=== PATIENT | male | born 1970 | race Two or more races ===

== ENCOUNTER 2020-10-19 12:51 | Inpatient (IN) | payer MEDICAID ==
[~2020-10-19] VITALS: Ht 157.5 cm; Wt 61.2 kg
[2020-10-19] MEDS ORDERED: SODIUM CHLORIDE 0.9% 1,000 ML IV ONE ×3 (13:15→17:19)
[2020-10-19 14:12] LABS: BASOPHILS % 0.7 % (0.0-2.0); CHLORIDE 118 mEq/L (98-107); HEMATOCRIT. 26.5 % (42.0-52.0); HEMOGLOBIN. 8.1 g/dL (14.0-18.0); LYMPHOCYTES % 38.5 % (20.0-50.0); MEAN CORPUSCULAR HEMOGLOBIN 21.4 pg (28.0-32.0); MEAN CORPUSCULAR VOLUME 69.4 fL (80.0-94.0); MEAN PLATELET VOLUME 8.5 fl (7.4-10.4); MONOCYTES % 6.9 % (2.0-8.0); NEUTROPHILS % 51.9 % (40.0-76.0); PLATELET 224 x1000/uL (130-400); RED BLOOD CELL COUNT 3.82 mill/uL (4.7-6.1); RED CELL DISTRIBUTION WIDTH 31.9 % (11.6-14.6)
[2020-10-19 14:25] LABS: ETHANOL BLOOD 336 mg/dL
[2020-10-19 15:53] LABS: PLATELET ESTIMATE NORMAL
[2020-10-19] MEDS ORDERED: ACETAMINOPHEN 500MG TABLET PO ONE (16:45)
[2020-10-19] MEDS ORDERED: LORAZEPAM 2MG/ML CPJ IV ONE (17:45)
[2020-10-19] MEDS ORDERED: DIPHENHYDRAMINE 50MG CAPSULE PO ONE (18:00)
[2020-10-19] MEDS ORDERED: ONDANSETRON HCL 4MG/2ML INJ IV PRN (22:15)
[2020-10-19] MEDS ORDERED: LORAZEPAM 2MG/ML CPJ IV PRN ×2 (22:15→22:45)
[2020-10-19] MEDS: HYDROCODONE/ACETAMINOPHEN 5/325MG TABLET PO PRN (23:06)
[2020-10-19 23:30] VITALS: BP 110/56
[2020-10-19] MEDS: CHLORDIAZEPOXIDE 25MG CAPSULE PO SCH (23:32)
[2020-10-20] VITALS: BP 106/53
[2020-10-20] MEDS ORDERED: NON FORMULARY PATIENT HOME MED XX SCH (00:15)
[2020-10-20 04:00] VITALS: BP 106/52
[2020-10-20] MEDS: HYDROCODONE/ACETAMINOPHEN 5/325MG TABLET PO PRN ×3 (04:14→13:27)
[2020-10-20 06:08] LABS: BASOPHILS % 1.2 % (0.0-2.0); EOSINOPHILS % 1.5 % (0.0-5.0); HEMATOCRIT. 25.7 % (42.0-52.0); HEMOGLOBIN. 7.7 g/dL (14.0-18.0); LYMPHOCYTES % 33.1 % (20.0-50.0); MEAN CORPUSCULAR VOLUME 70.1 fL (80.0-94.0); MEAN PLATELET VOLUME 8.8 fl (7.4-10.4); MONOCYTES % 12.8 % (2.0-8.0); NEUTROPHILS % 51.4 % (40.0-76.0); RED BLOOD CELL COUNT 3.67 mill/uL (4.7-6.1); RED CELL DISTRIBUTION WIDTH 33.3 % (11.6-14.6)
[2020-10-20 06:14] LABS: CHLORIDE 109 mEq/L (98-107)
[2020-10-20] MEDS ORDERED: DEXTROSE 50% WATER 50ML SYRINGE IV PRN (06:15)
[2020-10-20] MEDS: BLOOD SUGAR DIAGNOSTIC STRIP TEST SCH ×3 (06:20→17:10)
[2020-10-20] MEDS: CHLORDIAZEPOXIDE 25MG CAPSULE PO SCH ×2 (06:27→13:27)
[2020-10-20] MEDS: INSULIN LISPRO 100 UNITS/ML SUBCUT SCH ×3 (06:30→17:40)
[2020-10-20] MEDS ORDERED: METF-414 MT (06:54)
[2020-10-20] MEDS ORDERED: PANTOPRAZOLE 40MG DR TABLET PO SCH (07:10)
[2020-10-20 08:00] VITALS: BP 136/97
[2020-10-20] MEDS: METFORMIN HCL 500MG TABLET PO SCH ×2 (08:32→17:40)
[2020-10-20] MEDS ORDERED: THIAMINE HCL 100MG TABLET PO SCH (09:00)
[2020-10-20] MEDS ORDERED: FOLIC ACID 1MG TABLET PO SCH (09:00)
[2020-10-20] MEDS ORDERED: IRON SUCROSE COMPLEX 100 MG/5 ML ML IV SCH (09:00)
[2020-10-20] MEDS ORDERED: MULTIVITAMINS,THER W-MINERALS TABLET PO SCH (09:00)
[2020-10-20 09:21] LABS: PLATELET 210 x1000/uL (130-400)
[2020-10-20 12:00] VITALS: BP 103/51
[2020-10-20] MEDS ORDERED: INSULIN GLARGINE UD 100 UNITS/ML SYR SUBCUT SCH ×2 (13:00→22:00)
[2020-10-20] MEDS ORDERED: THIA100T88 MT (14:09)
[2020-10-20] MEDS ORDERED: METF-874 MT (14:09)
[2020-10-20] MEDS ORDERED: GLIP5TAB12 MT (14:09)
[2020-10-20] MEDS ORDERED: FERR325T23 MT (16:07)
[2020-10-20] MEDS ORDERED: DOCU-138 MT (16:07)
[2020-10-20 16:56] VITALS: BP 103/51
== END 2020-10-20 18:17 | disposition home or self-care (01) | DRG 425 ==
LOC: ER 12:51 → EDBD 19:42 → 8WST 19:42 → EDBEDREQTM 19:44 → EDBEDREQ 19:44 → ENRESERV 20:26
PROVIDERS: ADMIT Internal Medicine; ATTEND Internal Medicine
DX: E87.6 Hypokalemia (principal); E43 Unspecified severe protein-calorie malnutrition; E87.0 Hyperosmolality and hypernatremia; E87.2 Acidosis; D64.9 Anemia, unspecified; E11.9 Type 2 diabetes mellitus without complications; F10.129 Alcohol abuse with intoxication, unspecified; F17.200 Nicotine dependence, unspecified, uncomplicated; E87.8 Other disorders of electrolyte and fluid balance, not elsewhere classified; Y90.9 Presence of alcohol in blood, level not specified; Z68.24 Body mass index [BMI] 24.0-24.9, adult; Z71.41 Alcohol abuse counseling and surveillance of alcoholic
CPT/HCPCS: 36415; 71045; 80048; 80053; 80076; 80320; 82962; 83036; 83605; 84484; 85025; 93005; 99285; J1815; J2060; J7030; J7042; Q0163; G0480